=== PATIENT | female | born 1955 | race Caucasian/White ===

== ENCOUNTER 2017-11-28 17:18 | Emergency (ER) | payer SELFPAY ==
[~2017-11-28] VITALS: Ht 165.1 cm; Wt 58.0 kg
[~2017-11-28 17:18] MED LIST: ESOM40CA PO; ONDA4TAB10 PO; RANI150T8 PO
[2017-11-28 18:21] LABS: BASOPHILS # (AUTO) 0.04 x10^3/uL (0-0.1); BASOPHILS % (AUTO) 0 % (0-1); EOSINOPHILS # (AUTO) 0.25 x10^3/uL (0-0.4); EOSINOPHILS % (AUTO) 3 % (1-7); LYMPHOCYTES # (AUTO) 1.85 x10^3/uL (1-3.4); LYMPHOCYTES % (AUTO) 21 % (22-44); MD NO; MEAN CORPUSCULAR HEMOGLOBIN 29.5 pg (27.0-34.8); MEAN CORPUSCULAR HGB CONC 33.8 g/dL (32.4-35.8); MEAN CORPUSCULAR VOLUME 87.1 fL (80-100); MEAN PLATELET VOLUME 6.6 fL (7.4-10.4); MONOCYTES # (AUTO) 0.64 x10^3/uL (0.2-0.8); MONOCYTES % (AUTO) 7 % (2-9); NEUTROPHILS # (AUTO) 6.27 x10^3/uL (1.8-6.8); NEUTROPHILS % (AUTO) 69 % (42-75); PLATELET COUNT 476 x10^3/uL (130-400); RED BLOOD COUNT 5.17 x10^6/uL (3.82-5.3); RED CELL DISTRIBUTION WIDTH 13.5 % (9.6-15.2)
[2017-11-28 18:29] LABS: CALCIUM 8.9 mg/dL (8.5-10.1)
[2017-11-28 18:31] LABS: ALBUMIN 3.6 g/dL (3.4-5.0); ANION GAP 5 mmol/L (5-15); CHLORIDE 108 mmol/L (98-107)
[2017-11-28 18:34] LABS: ALANINE AMINOTRANSFERASE 22 U/L (12-78); CREATININE 0.97 mg/dL (0.55-1.02); TOTAL PROTEIN 7.9 g/dL (6.4-8.2); TROPONIN I < 0.015 ng/mL (0.000-0.045)
[2017-11-28 18:35] LABS: ALKALINE PHOSPHATASE 95 U/L (45-117); BILIRUBIN,TOTAL 0.3 mg/dL (0.2-1.0)
[2017-11-28 19:05] LABS: MICROSCOPIC AUTO
[2017-11-28 19:06] LABS: CULTURE INDICATED? YES
[2017-11-28 19:32] VITALS: BP 147/74
== END 2017-11-28 19:34 | disposition home or self-care (01) ==
LOC: ED 19:25
DX: R55 Syncope and collapse (principal); I10 Essential (primary) hypertension; R82.99 Other abnormal findings in urine
CPT/HCPCS: 36415; 71045; 80053; 81001; 84484; 85025; 87086; 93005; 99285